=== PATIENT | female | born 2000 | race Caucasian/White ===

== ENCOUNTER 2025-03-10 00:31 | Emergency (ER) | payer OTHER ==
[2025-03-10 00:38] VITALS: BMI 32.3
[2025-03-10] MEDS ORDERED: METHOCARBAMOL 500 MG TABLET ONE (04:54)
[2025-03-10] MEDS ORDERED: DEXAMETHASONE 4 MG TABLET (FP) ONE (04:54)
[2025-03-10] MEDS ORDERED: ACETAMINOPHEN 500 MG TABLET (FP) ONE (04:56)
[2025-03-10] MEDS: ACETAMINOPHEN 500 MG TABLET (FP) PO ONE (05:04)
[2025-03-10] MEDS: METHOCARBAMOL 500 MG TABLET PO ONE (05:04)
[2025-03-10] MEDS: DEXAMETHASONE 4 MG TABLET (FP) PO ONE (05:04)
[2025-03-10 10:26] VITALS: BP 110/72; PULSE 85; RESP 18; TEMP 98
== END 2025-03-10 10:10 | disposition home or self-care (01) ==
LOC: JER 00:31
DX: R20.0 Anesthesia of skin (principal); R20.2 Paresthesia of skin; R29.898 Other symptoms and signs involving the musculoskeletal system; M79.651 Pain in right thigh; M79.661 Pain in right lower leg; M25.551 Pain in right hip
CPT/HCPCS: 73552-TC-RT-FY; 84703; 93971-TC; 99285-25

== ENCOUNTER 2025-06-19 11:23 | Emergency (ER) | payer OTHER ==
[2025-06-19 11:40] VITALS: BP 128/86; PULSE 85; RESP 18; TEMP 97.2; BMI 36.1
[2025-06-19] MEDS ORDERED: DIPHTH,PERTUSS(ACELL),TET 0.5 ML DISP.SYRIN IM ONE (13:13)
[2025-06-19] MEDS: DIPHTH,PERTUSS(ACELL),TET 0.5 ML DISP.SYRIN IM ONE (13:18)
== END 2025-06-19 13:19 | disposition home or self-care (01) ==
LOC: JERFT 11:23
PROC: 0HQGXZZ Repair Left Hand Skin, External Approach (ICD-10-PCS; principal; 2025-06-19)
PROC: 3E0234Z Introduction of Serum, Toxoid and Vaccine into Muscle, Percutaneous Approach (ICD-10-PCS; 2025-06-19)
DX: S61.012A Laceration without foreign body of left thumb without damage to nail, initial encounter (principal); Z23 Encounter for immunization; W26.0XXA Contact with knife, initial encounter
CPT/HCPCS: 12001-25; 90471; 90715; 99284-25